=== PATIENT | male | born 1955 | race Caucasian/White ===

== ENCOUNTER → 2018-04-18 | Outpatient (CLI) | payer BC, OTHER ==
--- NOTE | ~2018-04-18 | 24HR ---
[place] [address] [facility] [place] [address] 24 HR ELECTROCARDIOGRAM REPORT Name: NICKIKEYACHARLA Room #: REG [facility]#: [id number] Admission: 04/18/18 Attend Phys: Rowdy Andrews MD Discharge: Date of : 57 Date of Service: 04/18/18 1415 Report #: [id number] THIS REPORT FOR: //name// [facility] Test Date: 2018-04-18 Test Time: 14:15:00 Pat Name: CHARLA BLAIR Department: Room: Gender: Batt Machine Operator: : 1955 Requested By: Rowdy Andrews Order Number: [id number] Cande MD: Milton Douglas Interpretive Statements 1. Underlying rhythm: Sinus mechanism 2. No significant ventricular or supraventricular tachyarrhythmia 3. The patient had 4 episodes of atrial fibrillation noted with a total duration of under 5 minutes these are asymptomatic 4. Symptoms of fluttering were not associated with any cardiac dysrhythmia Electronically Signed On 04-19-2018 19:21:57 HOTEL GUEST SERVICE AGENT by Milton Douglas [email or web address] <ELECTRONICALLY SIGNED> By: Milton Douglas MD 04/19/18 1921 1415 1415 Milton Douglas MD /EPI
== END ==
LOC: CV 10:39
DX: R00.2 Palpitations (principal)

== ENCOUNTER 2018-06-01 12:10 | Inpatient (IN) | payer BC, OTHER ==
[~2018-06-01] VITALS: Ht 177.8 cm; Wt 100.7 kg
[2018-06-01 12:20] VITALS: BP 133/79
[2018-06-01] MEDS ORDERED: CELEXA10 MG PO (13:07)
[2018-06-01] MEDS ORDERED: LOSARTAN POTASS50 MG PO (13:07)
[2018-06-01 13:15] LABS: URINE BLOOD NEGATIVE (Negative); URINE CLARITY CLEAR; URINE COLOR YELLOW; URINE GLUCOSE-RANDOM* NEGATIVE (Negative); URINE KETONES NEGATIVE (Negative); URINE LEUKOCYTES-REFLEX NEGATIVE (Negative); URINE NITRITE-REFLEX NEGATIVE (Negative); URINE PROTEIN (DIPSTICK) NEGATIVE (Negative); URINE UROBILINOGEN >= 8.0 E.U./dl (0.2-1.0)
[2018-06-01 13:25] LABS: ABSOLUTE NEUTROPHILS 9.8 thou/uL (1.4-8.2); BASOPHILS 0.1 % (0.0-2.0); EOSINOPHILS 0.5 % (0.0-3.0); HEMATOCRIT 42.1 % (42.0-52.0); HEMOGLOBIN 14.6 gm/dL (14.0-18.0); LYMPHOCYTES 6.6 % (24.0-44.0); MCH 30.8 pg (26.0-34.0); MCHC 34.7 g/dL (28.0-37.0); MCV 88.6 fL (80.0-100.0); MONOCYTES 7.2 % (1.0-8.0); PLATELET COUNT 239 thou/uL (150-400); POLYS 85.6 % (36.0-66.0); RBC 4.75 mil/uL (4.50-6.00); RDW 13.5 % (10.5-14.5); WBC 11.4 thou/uL (4.0-11.0)
[2018-06-01 13:30] LABS: ICTOTEST (BILI CONFIRMATORY) Negative (Negative); SSA (PROTEIN CONFIRMATORY) NEGATIVE (Negative); URINE BILIRUBIN NEGATIVE (Negative)
[2018-06-01 13:33] LABS: ANION GAP 8 mmol/L (7-16); BUN 13 mg/dL (7-18); CALCIUM 9.3 mg/dL (8.5-10.1); CHLORIDE 103 mmol/L (98-107); CO2 30 mmol/L (21-32); GLUCOSE 114 mg/dL (74-106); POTASSIUM 3.8 mmol/L (3.5-5.1); SODIUM 141 mmol/L (136-145)
[2018-06-01 13:40] LABS: ALBUMIN 3.4 g/dL (3.4-5.0); SGOT 642 U/L (15-37); SGPT 576 U/L (30-65); TOTAL PROTEIN 7.8 g/dL (6.4-8.2)
[2018-06-01 14:11] LABS: LIPASE > 30000 U/L (73-393)
[2018-06-01 15:41] VITALS: BP 133/79
[2018-06-01 15:56] VITALS: BP 118/79
[2018-06-01 17:27] VITALS: BP 137/71
--- NOTE | 2018-06-01 18:30 | NUR ---
PT RECEIVED FROM THE ER AT 1610 TO RM 464 ALERT AND IN NO ACUTE DISTRESS. PT WITH FEVER 100.0 ON ADMISSION. ABD PAIN INCREASED AFTER COUPLE OF HOURS BUT RELEIVED AFTER MED. PT ASSESSED AND ORIENTED TO THE UNIT. IV FLUIDS INFUSING. CONSULTS NOTIFIED. PT STARTED ON ZOSYN.
[2018-06-01 19:04] VITALS: BP 131/67
--- NOTE | 2018-06-02 03:19 | NUR ---
patient is aox4 makes needs known. patient has been npo. pain controlled this shift. patient in bed asleep at this time breathing regular and unlaboured.
[2018-06-02 05:15] VITALS: BP 110/61
[2018-06-02 05:53] LABS: HEMATOCRIT 37.7 % (42.0-52.0); HEMOGLOBIN 13.1 gm/dL (14.0-18.0); MCH 30.4 pg (26.0-34.0); MCHC 34.9 g/dL (28.0-37.0); MCV 87.1 fL (80.0-100.0); RBC 4.32 mil/uL (4.50-6.00); RDW 13.6 % (10.5-14.5)
[2018-06-02 06:05] LABS: CALCIUM 8.6 mg/dL (8.5-10.1); CREATININE 1.1 mg/dL (0.7-1.3); POTASSIUM 3.7 mmol/L (3.5-5.1)
[2018-06-02 07:28] VITALS: BP 108/62
[2018-06-02 09:36] LABS: TOTAL BILIRUBIN 7.6 mg/dL (<0.1-1.0); TOTAL PROTEIN 6.8 g/dL (6.4-8.2)
--- NOTE | 2018-06-02 10:57 | EKG ---
[address] [address] ELECTROCARDIOGRAM REPORT Name: CHARLA BLAIR Room #: 464-P ADM IN M.R.#: [id number] Admission: 06/01/18 Attend Phys: Gus Abdalla MD Discharge: Date of : 57 Report #: [id number] THIS REPORT FOR: //name// [facility] ED Test Date: 2018-06-01 Test Time: 13:36:12 Pat Name: CHARLA BLAIR Department: Room: 464 Gender: M Welfare Worker: : 1955 Requested By: Milli Ramos Order Number: [id number] MD: Mike Sanon Measurements Intervals [place] Rate: 68 P: 37 PA: 180 QRS: 34 QRSD: 105 T: 17 QT: 395 QTc: 421 Interpretive Statements Sinus rhythm No previous ECG available for comparison Electronically Signed On 06-02-2018 10:56:44 CHEMICAL PATHOLOGIST by Mike Sanon [email or web address] <ELECTRONICALLY SIGNED> By: Mike Sanon MD 06/02/18 1056 1336 1336 Mike Sanon MD /EPI
[2018-06-02] MEDS ORDERED: GLUCOPHAGE XR500 MG PO (14:30)
[2018-06-02] MEDS ORDERED: VITAMIN B-12500 MCG PO (14:31)
[2018-06-02 14:35] VITALS: BP 114/61
[2018-06-02 18:53] VITALS: BP 114/68
[2018-06-03 04:23] VITALS: BP 128/72
--- NOTE | 2018-06-03 05:58 | NUR ---
ASSUMED CARE AT 1900, ASSESSMENT COMPLETED. PT REPORTS VERY MINIMAL PAIN, DENIES NAUSEA OR SOB. HS BEEN SR ON TELE, HR IN 60'S. UP AD BART IN ROOM, CALLS APPROPRIATELY FOR HELP. TOLERATING CLEAR LIQUIDS WELL UNTIL MIDNIGHT THEN NPO FOR PIPIDA AND MRCP TODAY. PT UNDERSTANDS BEING NPO AND NOT TAKING ANY NARCOTICS PRIOR TO PIPIDA. URINE OUTPUT IS DARK TEA COLORED. IV FLUIDS AND ABX INFUSING OVERNIGHT. NO OTHER CONCERNS, WILL CONTINUE TO MONITOR.
[2018-06-03 06:08] LABS: HEMATOCRIT 34.8 % (42.0-52.0); HEMOGLOBIN 11.7 gm/dL (14.0-18.0); MCH 30.1 pg (26.0-34.0); MCHC 33.7 g/dL (28.0-37.0); MCV 89.4 fL (80.0-100.0); RBC 3.89 mil/uL (4.50-6.00); RDW 13.6 % (10.5-14.5); WBC 6.5 thou/uL (4.0-11.0)
[2018-06-03 06:21] LABS: CALCIUM 8.1 mg/dL (8.5-10.1); MAGNESIUM 1.8 mg/dL (1.8-2.4); POTASSIUM 3.4 mmol/L (3.5-5.1)
[2018-06-03 07:47] VITALS: BP 114/67
--- NOTE | 2018-06-03 09:59 | NUR ---
CALLED TO NUC TO GIVE PT MORPHINE SULFATE 3.1MG IVP FOR GALL BLADDER SCAN. SL PATENT. VSS. NO ALLERGIES. PT VOICES UNDERSTANDING.
--- NOTE | 2018-06-03 10:43 | NUR ---
Assess pt due to dx gallstone pancreatitis. Pt off unit for procedure at this time. Nurse reports documented wts 221 lb more accurate. Currenly on clear liquids. Lipase levels trending down. Likely lap jefry surgery soon. Low nutrition risk
[2018-06-03 13:57] VITALS: BP 114/67
[2018-06-03 15:44] VITALS: BP 122/74
--- NOTE | 2018-06-03 15:57 | NUR ---
PT ADMITTED RLEATED TO GALLSTONE PANCREATITIS. CM REVIEWED CHART AND SPOKE WITH CARE TEAM. CM MET WITH PT AT BEDSIDE THIS DAY. PT IS A&O X4. CM ROLE INTRODUCED. PT INDICATED HE LIVES IN A HOUSE WITH HIS , SON, HIS , AND GRANDDTR. PT INDICATED HE HAS TWO STEPS TO ENTER THROUGH THE GARAGE AND A FULL FLIGHT OF STEPS TO SECOND STORY BEDROOM. PT INDICATED HE HAD BEEN INDEPENDENT WITH GAIT AND ADLS INTERN ARCHITECT. PT INDICATED HE PLANS TO RETURN HOME ONCE MEDICALLY STABLE. CM TO FOLLOW INDICATED WITH DC PLANNING.
[2018-06-03 19:29] VITALS: BP 115/68
--- NOTE | 2018-06-04 02:51 | NUR ---
PT SLEPT MOST OF THE NIGHT PT NPO SINCE MIDNIGHT PT USED CALL LIGHT EFFECTIVELY NO ISSUES OVERNIGHT.
[2018-06-04 05:18] VITALS: BP 130/75
[2018-06-04 05:31] LABS: HEMATOCRIT 34.3 % (42.0-52.0); HEMOGLOBIN 11.9 gm/dL (14.0-18.0); MCH 30.6 pg (26.0-34.0); MCHC 34.6 g/dL (28.0-37.0); MCV 88.7 fL (80.0-100.0); RBC 3.87 mil/uL (4.50-6.00); RDW 13.1 % (10.5-14.5); WBC 6.4 thou/uL (4.0-11.0)
[2018-06-04 05:39] LABS: CALCIUM 8.2 mg/dL (8.5-10.1); CREATININE 0.9 mg/dL (0.7-1.3); MAGNESIUM 1.7 mg/dL (1.8-2.4); POTASSIUM 3.5 mmol/L (3.5-5.1)
[2018-06-04 05:50] LABS: DIRECT BILIRUBIN 1.9 mg/dL (<0.1-0.3); TOTAL BILIRUBIN 2.6 mg/dL (<0.1-1.0); TOTAL PROTEIN 5.7 g/dL (6.4-8.2)
[2018-06-04 06:09] LABS: ALBUMIN 2.7 g/dL (3.4-5.0)
[2018-06-04 08:24] VITALS: BP 126/79
--- NOTE | 2018-06-04 13:55 | NUR ---
TOWARDS POC PT A/O X4, VSS,AFEBRILE. DENIES PAIN, NO NV, NO SOA. PT WENT FRO SURGERY AT 1200H. WILL CONTINUE TO MONITOR ONCE BACK IN THE ROOM.
--- NOTE | 2018-06-04 15:16 | NUR ---
PT HAVING A LAP DEZ TODAY. CM TO FOLLOW INDICATED WITH DC PLANNING.
[2018-06-04 18:45] VITALS: BP 138/75
[2018-06-04 19:00] VITALS: BP 133/76
[2018-06-04 19:46] VITALS: BP 144/81
[2018-06-04 19:54] LABS: DIRECT BILIRUBIN 1.8 mg/dL (<0.1-0.3); TOTAL BILIRUBIN 2.3 mg/dL (<0.1-1.0); TOTAL PROTEIN 6.7 g/dL (6.4-8.2)
--- NOTE | 2018-06-05 03:41 | NUR ---
PT GIVEN ORAL AND IV PAIN MEDICINE FOR PAIN PT WAS UP MOST OF THE NIGHT PT USED CALL LIGHT EFFECTIVELY.
[2018-06-05 04:16] VITALS: BP 133/78
[2018-06-05 05:36] LABS: ABSOLUTE NEUTROPHILS 7.2 thou/uL (1.4-8.2); BASOPHILS 0.2 % (0.0-2.0); HEMATOCRIT 37.1 % (42.0-52.0); LYMPHOCYTES 12.4 % (24.0-44.0); MCH 31.1 pg (26.0-34.0); MCHC 34.9 g/dL (28.0-37.0); MCV 89.1 fL (80.0-100.0); MONOCYTES 8.7 % (1.0-8.0); PLATELET COUNT 271 thou/uL (150-400); POLYS 78.7 % (36.0-66.0); RBC 4.17 mil/uL (4.50-6.00); RDW 13.6 % (10.5-14.5); WBC 9.2 thou/uL (4.0-11.0)
[2018-06-05 05:58] LABS: ALBUMIN 2.7 g/dL (3.4-5.0); CALCIUM 8.3 mg/dL (8.5-10.1); CREATININE 0.8 mg/dL (0.7-1.3); POTASSIUM 3.7 mmol/L (3.5-5.1); TOTAL BILIRUBIN 1.9 mg/dL (<0.1-1.0); TOTAL PROTEIN 6.7 g/dL (6.4-8.2)
[2018-06-05 07:40] VITALS: BP 138/81
[2018-06-05] MEDS ORDERED: NORCO 5-325 TA1 EACH PO (12:41)
[2018-06-05 15:51] VITALS: BP 138/81
--- NOTE | 2018-06-05 15:52 | NUR ---
CARE TEAM INDICATED THAT PT IS MEDICALLY STABLE TO DISCHARGE HOME THIS DAY. CARE TEAM ORDERING HOME HEALTH FOR NURSING TO FOLLOW FOR DRAIN CAIR. NO OTHER CM INTERVENTION INDICATED AT THIS TIME. CASE CLOSED.
--- NOTE | 2018-06-05 18:08 | NUR ---
DIS PT DC TODAY, IV AND HEART MONITOR DC'D. PT DC'D WITH ABENA DRAIN. ABENA DRAIN DRESSING CHANGED. PAIN MANAGED BY MEDS. MED SCRIPTS AND AND DC PACKET PROVIDED.
--- NOTE | 2018-06-07 10:07 | PATH ---
[facility] [address] [place] [address] PATHOLOGY RPT PROCEDURE Name: CHARLA REID Room #: 464-P [facility] IN M.R.#: [id number] Admission: 06/01/18 Date of : 57 Discharge: 06/05/18 Report #: [id number] Path Case #: [id number] [facility] Accession Number: [id number] . 01 Material submitted: . GALLBLADDER AND CONTENTS . 01 Clinical history: . Cholelithiasis . 02 Diagnosis: Gallbladder and contents, cholecystectomy: - Moderate acute and chronic cholecystitis. - Cholelithiasis. (IUV:pit 06/06/2018) QTP/06/06/2018 . 02 Electronically signed: . Autumn Govea MD, Pathologist NPI- [id number] . 01 Gross description: . Received in formalin labeled "Charla Reid, gallbladder and contents," is a previously opened gallbladder measuring 5.8 x 2.7 x 2.6 cm in greatest dimensions. The serosal surface is shaggy and dark jim-brown in appearance. A possible lymph node is present near the infundibulum, measuring 0.5 x 0.4 x 0.3 cm. The mucosal surface is shaggy and dark jim to dark brown in appearance, with no polyps or nodules noted grossly. The mucosa averages 0.1 cm in thickness, and the gallbladder wall measures up to 0.6 cm in thickness. A single calculus is present within the specimen that is granular and yellow-jim in appearance, measuring 0.4 cm in maximum dimension. Instrument Repair Supervisor sections of the infundibulum, body and fundus are submitted in cassette A1. The bisected possible lymph node is submitted entirely in cassette A2. (DAC; 06/05/2018) XDC/XDC . 02 Pathologist provided ICD-10: K80.12 . 02 CPT . 228108 Specimen Comment: A courtesy copy of this report has been sent to Specimen Comment: [phone], , , . Specimen Comment: Report sent to ,DR LOGAN / DR CUEVA Specimen Comment: DR BARRETO Specimen Comment: A duplicate report has been generated [place] [address] PATHOLOGY RPT PROCEDURE Name: JOHNNIECHARLA Room #: 464-P DIS IN M.R.#: [id number] Admission: 06/01/18 Date of : 57 Discharge: 06/05/18 Report #: [id number] Path Case #: [id number] updates. Performed at: 01 [facility] [address] [facility] [address], [place] [id number] MD Maykel Francis MD Phone: [phone] Performed at: [address] [id number] MD Autumn Govea MD Phone: [phone]
--- NOTE | 2018-06-07 10:10 | HC ---
[facility] [place] [address] CONSULTATION Name: CHARLA BLAIR J Room #: 464-P [facility] IN ..#: [id number] Admission: 06/01/18 Attend Phys: Gus Abdalla MD Discharge: 06/05/18 Date of : 57 Report #: [id number] THIS REPORT FOR: //name// CC: Rowdy Abdalla DATE OF SERVICE: 06/02/2018 GI CONSULT: SUBJECTIVE: The patient is a very pleasant 62-year-old male who I have been asked to see for further evaluation of his second episode of acute pancreatitis in the last 6 months. He had severe epigastric abdominal pain, which has now completely resolved this episode. He did turn yellow at home, which he has turned yellow in the past back in late March. He had a similar episode in January. He has had a workup as an outpatient, which revealed a negative CT scan, particularly to the head of the pancreas. He has had known gallstones and cholecystectomy was deferred after his last episode in late March. He presents now with those symptoms mentioned above as well as jaundice. MEDICAL HISTORY: Reviewed includes hypertension. He smokes cigars. Denies alcohol consumption. MEDICATIONS: Include losartan and Celexa. FAMILY HISTORY: Negative for inflammatory bowel disease or colon cancer. SOCIAL HISTORY: As stated above. REVIEW OF SYSTEMS: Negative for weight loss, fevers or fatigue. He denies head, eyes, ears, nose or throat complaints. Denies chest pain, chest palpitation, chest pressure, cough, shortness of breath, wheezing, genitourinary, musculoskeletal or neuropsychiatric complaints. OBJECTIVE: VITAL SIGNS: Afebrile. Stable. HEENT: Icteric skin jaundice. CARDIOVASCULAR: Regular. LUNGS: Clear. ABDOMEN: Soft, nondistended, nontender. No stigmata of chronic liver disease. No abnormal masses or bruits. EXTREMITIES: No clubbing, cyanosis or edema. NEUROLOGIC: Not performed. RECTAL: Deferred. [facility] [address] [place] [address] CONSULTATION Name: JOHNNIECHARLA Room #: 464-P [facility] IN [facility].#: [id number] Admission: 06/01/18 Attend Phys: Gus Abdalla MD Discharge: 06/05/18 Date of : 57 Report #: [id number] PERTINENT LABORATORY DATA: Include hemoglobin 14.6, normal MCV, RDW. White count 11.4. Serum chemistry notable for glucose 115. I do not have a lipase from this morning, his admitting lipase was 13,035, total bilirubin 7.6 up from 3.0, direct bilirubin 6.0, AST 344, ALT 557, alkaline phosphatase 186. Imaging studies reveal abdominal ultrasound without dilated ducts, there is cholelithiasis and tumefactive sludge within the gallbladder lumen with mild gallbladder wall thickening. ASSESSMENT AND PLAN: In summary, the patient has gallstone pancreatitis, recurrent and should have a cholecystectomy. There is no evidence of ductal dilatation. However, an MRCP will be ordered to exclude definitively common bile duct stones. We will proceed with liquid diet today, a surgical consultation and we will follow. Thanks again for allowing me to participate in the care of this nice man. <ELECTRONICALLY SIGNED> By: Nayan Bocanegra MD 06/07/18 1010 1058 10 Eris Vee MD /nt
== END 2018-06-05 18:45 | disposition home health service (06) | DRG 417 ==
LOC: ER 12:10 → 4W 14:37 → EROBS 14:37 → 4W 16:21 → ENTRNSPT 06-05 18:06 → 4W 06-05 18:45
PROVIDERS: Physician Assistant; Surgery; ADMIT Internal Medicine
PROC: 0FT44ZZ Resection of Gallbladder, Percutaneous Endoscopic Approach (ICD-10-PCS; principal; 2018-06-04)
DX: K80.12 Calculus of gallbladder with acute and chronic cholecystitis without obstruction (principal); K85.10 Biliary acute pancreatitis without necrosis or infection; I10 Essential (primary) hypertension; F17.290 Nicotine dependence, other tobacco product, uncomplicated; F32.9 Major depressive disorder, single episode, unspecified; K76.9 Liver disease, unspecified; K66.0 Peritoneal adhesions (postprocedural) (postinfection); Z79.899 Other long term (current) drug therapy
CPT/HCPCS: 10045; 50010; 50101; 50249; 50331; 50411; 50555; 50558; 50900; 50962; 51489; 51975; 52265; 52266; 52287; 53307; 53310; 54022; 54118; 55245; 55317; 56462; 56525; 56526; 56639; 62110; 62900; 70005